=== PATIENT | male | born 1980 | race Two or more races ===

== ENCOUNTER 2018-05-18 04:03 | Emergency (ER) | payer OTHER ==
[2018-05-18 04:11] VITALS: BP 116/85; PULSE 90; TEMP 99.5; BMI 32.1
--- NOTE | 2018-05-18 04:20 | PDOC ---
History of Present Illness - General Chief Complaint: Cold Symptoms Stated Complaint: CHEST CONGESTION Time Seen by Provider: 05/18/18 04:20 History Source: Patient Exam Limitations: No Limitations - History of Present Illness Initial Comments: 05/18/18 04:24 This is a 37-year-old this is a 37-year-old male who is also a smoker. Patient comes in complaining of cough congestion and difficulty breathing. Patient said he has had symptoms since yesterday. Patient denies any fever or chills. Patient denies any other complaints. PAST MEDICAL HISTORY: no significant history PAST SURGICAL HISTORY: no significant history FAMILY HISTORY: no pertinant history SOCIAL HISTORY: Pt lives with family and is employed. MEDICATIONS: reviewed ALLERGIES: As per nursing notes ROS General: No fevers or chills, no weakness, no weight loss HEENT: No change in vision. No sore throat,. No ear pain CardioVascular: No chest pain + shortness of breath Respiratory:+ cough,+wheezing. Gastrointestinal: no nausea, vomiting, diarrhea or constipation, No rectal bleeding Genitourinary: No dysuria, hematuria, or frequency Musculoskeletal: . No joint pain or swelling Neurologic: No headache, vertigo, dizziness or loss of consciousness Psychiatric: nor depression Skin: No rashes or easy bruising Endocrine: no increased thirst or abnormal weight change Allergic: no skin or latex allergy All other systems reviewed and normal Exam: General: Well-nourished well-developed individual, no acute distress HEENT: Throat: Normal, tonsils normal, no erythema or exudate Neck: Supple, no meningeal signs, no lymphadenopathy Eyes::Pupils equal reactive and round, extraocular motion intact Chest: Nontender to palpation Cardiac: S1-S2 normal, regular rate and rhythm, no murmurs rubs or gallops Respiratory: Lungs + mild to moderate wheezing bilateral Abdomen: Soft, nondistended, normal bowel sounds, there is no tenderness on palpation diffusely Extremities: Warm, dry, no cyanosis, clubbing, or edema Skin: No rashes Neuro: Alert and oriented x3, CN II - XII intact, nonfocal exam with normal strength, normal sensation, normal reflexes, normal gait, Psych: Normal mood and affect Post-DuoNeb's patients breathing is much improved. Patient still with very mild occasional wheeze expiratory quevedo. Patient otherwise feels much better. Prescription for an inhaler sent patient's pharmacy as well as some prednisone. Patient discharged home will follow up with his primary care doctor Past History - Past Medical History Allergies/Adverse Reactions: Allergies Allergy/AdvReac Type Severity Reaction Status Date / Time No Known Drug Allergies Allergy Verified 08/27/15 10:03 Home Medications: Ambulatory Orders Albuterol Sulfate Inhaler - [Ventolin Hfa Inhaler -] 2 inh PO Q4H #1 inh predniSONE [Deltasone -] 40 mg PO DAILY #8 tablet 05/18/18 Anemia: No Asthma: No Cancer: No Cardiac Disorders: No CVA: No COPD: No CHF: No Dementia: No Diabetes: No GI Disorders: No Disorders: No HTN: No Hypercholesterolemia: No Liver Disease: No Seizures: No Thyroid Disease: No Other medical history: TB - Surgical History Appendectomy: Yes - Suicide/Smoking/Psychosocial Hx Smoking History: Current every day smoker Have you smoked in the past 12 months: Yes Number of Cigarettes Smoked Daily: 10 Information on smoking cessation initiated: Yes 'Breaking Loose' booklet given: 05/18/18 Hx Alcohol Use: No Drug/Substance Use Hx: No Substance Use Type: None *Physical Exam - Vital Signs Last Vital Signs Temp Pulse Resp BP Pulse Ox 99.5 F 90 20 116/85 95 05/18/18 04:07 05/18/18 04:07 05/18/18 04:07 05/18/18 04:07 05/18/18 04:07 *DC/Admit/Observation/Transfer Diagnosis at time of Disposition: Wheezing - Discharge Dispostion Disposition: HOME Condition at time of disposition: Stable Decision to Admit order: No - Prescriptions Prescriptions: Albuterol Sulfate Inhaler - [Ventolin Hfa Inhaler -] 2 inh PO Q4H #1 inh predniSONE [Deltasone -] 40 mg PO DAILY #8 tablet - Referrals Referrals: ON STAFF,NOT [Primary Care Provider] - - Patient Instructions Additional Instructions: I sent a prescription two-[facility] pharmacy for a inhaler get it filled and you can use it 2 puffs as often as every 4 hours if needed for shortness of breath and wheezing In addition to the inhaler date prednisone 40 mg a day for 4 days. Return to the emergency department immediately with ANY new, persistent or worsening symptoms. Continue any medications as previously prescribed by your physician. You should follow up with your primary doctor as soon as possible regarding today's emergency department visit. . Please make sure your doctor reviews the results of your emergency evaluation. Thank you for coming to the Emergency Department today for your care. It was a pleasure to see you today. Please note that your evaluation is INCOMPLETE until you follow-up with your doctor. - Post Discharge Activity
[2018-05-18] MEDS ORDERED: predniSONE 20 MG TABLET (UD) PO ONE (04:22)
[2018-05-18] MEDS: ALBUTEROL SO4 2.5/IPRATROPIUM 0.5 INH SOL 3 ML VIAL.NEB. NEB SCH ×2 (04:26→04:49)
== END 2018-05-18 05:22 | disposition home or self-care (01) ==
LOC: FER 04:03
PROC: 3E0F7GC Introduction of Other Therapeutic Substance into Respiratory Tract, Via Natural or Artificial Opening (ICD-10-PCS; principal; 2018-05-18)
DX: R06.2 Wheezing (principal); F17.210 Nicotine dependence, cigarettes, uncomplicated
CPT/HCPCS: 94640; 99282-25; J7620